=== PATIENT | male | born 1990 | race African-American/Black ===

== ENCOUNTER 2020-09-14 17:14 | Emergency (ER) | payer SELFPAY ==
--- OUTSIDE RECORDS SUMMARY | 2020-09-14 17:17 | XMS REPORT | Continuity of Care Document ---
:1990 Author Organization [facility] t Address [address] [place] [address] Care Team Providers Name Role Phone Unavailable Unavailable Unavailable Problems This patient has no known problems. Allergies, Adverse Reactions, Alerts This patient has no known allergies or adverse reactions. Medications This patient has no known medications. Procedures This patient has no known procedures. Results This patient has no known results.
--- NOTE | 2020-09-14 23:40 | ER ---
Nurse's Notes [facility] Name: Kana Chang Age: 29 yrs Sex: Male : 1990 Arrival Date: 09/14/2020 Time: 17:17 Bed Treatment Private MD: Diagnosis: Presentation: 09/14 17:30 Chief complaint: Patient states: Lower back pain x 2 days. Pt stated, " I lifted kg something heavy at work and had sharp in lower back". Coronavirus screen: Client denies travel out of the [place] in the last 14 days. At this time, unable to obtain information related to travel outside the [place] At this time, the client does not indicate any symptoms associated with coronavirus-19. Ebola Screen: Patient negative for fever greater than or equal to 101.5 degrees Fahrenheit, and additional compatible Ebola Virus Disease symptoms Patient denies exposure to infectious person. Patient denies travel to an Ebola-affected area in the 21 days before illness onset. No symptoms or risks identified at this time. Initial Sepsis Screen: Does the patient meet any 2 criteria? No. Patient's initial sepsis screen is negative. Does the patient have a suspected source of infection? No. Patient's initial sepsis screen is negative. Risk Assessment: Do you want to hurt yourself or someone else? Patient reports no desire to harm self or others. Onset of symptoms was September 12, 2020. 17:30 Method Of Arrival: Ambulatory kg 17:30 Acuity: JOHN 4 kg Triage Assessment: 17:33 General: Appears in no apparent distress. Behavior is calm, cooperative, appropriate kg for age, quiet. Pain: Complains of pain in low back area and left low back. Musculoskeletal:. Historical: - Allergies: 17:33 Iodine; kg - Home Meds: 17:33 None [Active]; kg - PMHx: 17:33 None; kg - PSHx: 17:33 Appendectomy; Right ankle sx; Right foot sx; kg - Immunization history:: Adult Immunizations not immunized, Client reports having NOT received the Covid vaccine. - Social history:: Smoking status: Patient uses Dips tobacco . Screenin:37 Abuse screen: Denies threats or abuse. Denies injuries from another. Nutritional kg screening: No deficits noted. Tuberculosis screening: No symptoms or risk factors identified. Fall Risk None identified. Vital Signs: 17:30 Pulse 84; Resp 20; Temp 97.2(TE); Pulse Ox 100% on R/A; Weight 90.72 kg (R); Height 5 kg ft. 9 in. (175.26 cm) (R); Pain 4/10; 17:30 Body Mass Index 29.53 (90.72 kg, 175.26 cm) kg ED Course: 17:17 Patient arrived in ED. as 17:33 Triage completed. kg 17:33 Arm band placed on left wrist. kg 17:37 Patient has correct armband on for positive identification. kg Administered Medications: No medications were administered Outcome: 23:40 Patient left the ED. kg Signatures: Gabriela Gutierrez Kristen, RN RN kg Corrections: (The following items were deleted from the chart) 17:36 17:33 Allergies: No Known Allergies; kg kg 17:36 17:33 PSHx: None; kg kg
[2020-09-14 23:51] VITALS: TEMP 97.2; O2SAT 100
== END 2020-09-14 23:40 | disposition left against medical advice (07) ==
LOC: ER 17:14
DX: Z53.21 Procedure and treatment not carried out due to patient leaving prior to being seen by health care provider (principal)
CPT/HCPCS: 99281

== ENCOUNTER 2020-12-28 16:39 | Emergency (ER) | payer SELFPAY ==
--- OUTSIDE RECORDS SUMMARY | 2020-12-28 16:42 | XMS REPORT | Continuity of Care Document ---
:1990 Author Organization [facility] t Address [address] [place] [address] Care Team Providers Name Role Phone Unavailable Unavailable Unavailable Problems This patient has no known problems. Allergies, Adverse Reactions, Alerts This patient has no known allergies or adverse reactions. Medications This patient has no known medications. Procedures This patient has no known procedures. Results This patient has no known results.
--- NOTE | 2020-12-28 17:06 | EDPHYS ---
Physician Documentation [facility] Name: Kana Chang Age: 30 yrs Sex: Male : 1990 Arrival Date: 12/28/2020 Time: 16:43 Bed 12 Private MD: ED Physician Jerry Chase HPI: 12/28 17:00 This 30 yrs old Black Male presents to ER via Ambulatory with complaints of Finger jmm Injury. 17:00 The patient or guardian reports injury, a laceration, pain. Onset: The symptoms/episode jmm began/occurred acutely, just prior to arrival. Modifying factors: The symptoms are alleviated by nothing, the symptoms are aggravated by nothing. Associated signs and symptoms: Pertinent negatives: decreased sensation distally, fever, nausea, numbness distally, tingling distally, vomiting. This is a 30-year-old male with no known chronic medical conditions the presents emerged department with complaints of left third finger laceration on the ulnar side. Patient states this occurred when he was washing dishes last night. Patient states that it bled for approximately 15 minutes. Patient states that his last tetanus immunization was most likely in 2011. Patient denies other injury. Historical: - Allergies: 16:54 Iodine; vg1 - Home Meds: 16:54 None [Active]; vg1 - PMHx: 16:54 None; vg1 - PSHx: 16:54 Appendectomy; right ankle sx; Right foot sx; vg1 - Immunization history:: Client reports having NOT received the Covid vaccine. Last tetanus immunization: < 10 years ago. - Social history:: Smoking status: Reported history of juuling and/or vaping. ROS: 17:00 Constitutional: Negative for fever, chills, and weight loss, Cardiovascular: Negative jmm for chest pain, palpitations, and edema, Respiratory: Negative for shortness of breath, cough, wheezing, and pleuritic chest pain. 17:00 MS/extremity: Positive for injury or acute deformity. 17:00 All other systems are negative. Exam: 17:00 Constitutional: This is a well developed, well nourished patient who is awake, alert, jmm and in no acute distress. Head/Face: atraumatic. Eyes: EOMI, no conjunctival erythema appreciated ENT: Moist Mucus Membranes Neck: Trachea midline, Supple Chest/axilla: Normal chest wall appearance and motion. Cardiovascular: Regular rate and rhythm. No edema appreciated Respiratory: Normal respirations, no respiratory distress appreciated Abdomen/GI: Non distended, soft Back: Normal ROM 17:00 Musculoskeletal/extremity: Full range of motion appreciated to the left third IP and DIP, less than 2-second distal capillary refill, neurovascular intact. 17:00 Skin: 1.5 cm laceration noted to the left third mid phalanx, no active bleeding appreciated, no surrounding induration or erythema appreciated. 17:00 Neuro: Orientation: is normal, Mentation: is normal, Memory: is normal. Vital Signs: 16:49 BP 146 / 96; Pulse 73; Resp 16; Temp 98.8; Pulse Ox 99% ; Weight 86.18 kg; Height 5 ft. vg1 9 in. (175.26 cm); Pain 2/10; 16:49 Body Mass Index 28.06 (86.18 kg, 175.26 cm) vg1 MDM: 17:00 Patient medically screened. [facility] 17:00 Data reviewed: vital signs, nurses notes. Counseling: I had a detailed discussion with maria eugenia the patient and/or guardian regarding: the historical points, exam findings, and any diagnostic results supporting the discharge/admit diagnosis, the need for outpatient follow up, to return to the emergency department if symptoms worsen or persist or if there are any questions or concerns that arise at home. 17:00 Refusal of service: The patient/guardian displays adequate decision making capability maria eugenia and despite a detailed discussion of alternatives, benefits, risks, and consequences refuses: Tetanus immunization. 12/28 17:00 Order name: Wound Care; Complete Time: 17:08 [facility] Administered Medications: No medications were administered Disposition: 17:25 Co-signature as Attending Physician, Jerry Chase MD. rn Disposition Summary: 12/28/20 17:05 Discharge Ordered Location: Home [facility] Condition: Stable [facility] Diagnosis - Finger Laceration [facility] Followup: [facility] - With: Private Physician - When: 2 - 3 days - Reason: Recheck today's complaints, Continuance of care, Re-evaluation by your physician Discharge Instructions: - Discharge Summary Sheet [facility] - Nonsutured Laceration Care [facility] Forms: - Medication Reconciliation Form [facility] - Thank You Letter [facility] - Antibiotic Education [facility] - Prescription Opioid Use [facility] - Work release form ss Signatures: Zak May PA PA jmm Nieto, Roman, MD MD rn Sravan, LUCÍA Spann RN vg1
--- NOTE | 2020-12-28 17:06 | ER ---
Nurse's Notes [facility] Name: Kana Chang Age: 30 yrs Sex: Male : 1990 Arrival Date: 12/28/2020 Time: 16:43 Bed 12 Private MD: Diagnosis: Finger Laceration Presentation: 12/28 16:49 Chief complaint: Patient states: Accidently cut Left middle finger with a plate at work vg1 and plate was about 190 degrees. States wants to get it checked and make sure its not infected. Coronavirus screen: Vaccine status: Patient reports being unvaccinated. Client denies travel out of the [place] in the last 14 days. Ebola Screen: Patient negative for fever greater than or equal to 101.5 degrees Fahrenheit, and additional compatible Ebola Virus Disease symptoms. Initial Sepsis Screen: Does the patient meet any 2 criteria? No. Patient's initial sepsis screen is negative. Does the patient have a suspected source of infection? No. Patient's initial sepsis screen is negative. Risk Assessment: Do you want to hurt yourself or someone else? Patient reports no desire to harm self or others. Onset of symptoms was December 27, 2020. 16:49 Method Of Arrival: Ambulatory vg1 16:49 Acuity: JOHN 4 vg1 Triage Assessment: 16:54 General: Appears in no apparent distress. comfortable, Behavior is calm, cooperative. vg1 Pain: Complains of pain in palmar aspect of middle phalanx of left middle finger Pain currently is 2 out of 10 on a pain scale. Musculoskeletal: Circulation, motion, and sensation intact. Injury Description: Laceration sustained to palmar aspect of middle phalanx of left middle finger was sustained 1 day ago. Historical: - Allergies: 16:54 Iodine; vg1 - Home Meds: 16:54 None [Active]; vg1 - PMHx: 16:54 None; vg1 - PSHx: 16:54 Appendectomy; right ankle sx; Right foot sx; vg1 - Immunization history:: Client reports having NOT received the Covid vaccine. Last tetanus immunization: < 10 years ago. - Social history:: Smoking status: Reported history of juuling and/or vaping. Screenin:14 Abuse screen: Denies threats or abuse. Denies injuries from another. Nutritional ss screening: No deficits noted. Tuberculosis screening: Never had TB. Fall Risk None identified. Assessment: 17:14 General: Appears in no apparent distress. comfortable, Behavior is calm, cooperative. ss Respiratory: Respiratory effort is even, unlabored. 17:14 Derm: Skin is pink, warm \T\ dry. normal. Musculoskeletal: Range of motion: intact in all ss extremities. Vital Signs: 16:49 BP 146 / 96; Pulse 73; Resp 16; Temp 98.8; Pulse Ox 99% ; Weight 86.18 kg; Height 5 ft. vg1 9 in. (175.26 cm); Pain 2/10; 16:49 Body Mass Index 28.06 (86.18 kg, 175.26 cm) vg1 ED Course: 16:43 Patient arrived in ED. mr 16:54 Triage completed. vg1 16:54 Arm band placed on. vg1 16:59 Zak May PA is PHCP. [facility] 16:59 Jerry Chase MD is Attending Physician. [facility] 17:08 Helen Goyal, LUCÍA is Primary Nurse. ss 17:13 No provider procedures requiring assistance completed. Patient did not have IV access ss during this emergency room visit. Dressings: Band aid x 1 palmar aspect of middle phalanx of left middle finger. Wound care: to laceration located on palmar aspect of middle phalanx of left middle finger was cleaned with soap and water, Patient tolerated well. 17:14 Patient has correct armband on for positive identification. Bed in low position. ss Administered Medications: No medications were administered Outcome: 17:05 Discharge ordered by . [facility] 17:13 Discharged to home ambulatory. ss 17:13 Condition: good 17:13 Discharge instructions given to patient, Instructed on discharge instructions, follow up and referral plans. Demonstrated understanding of instructions, follow-up care. 17:15 Patient left the ED. ss Signatures: Zak May PA PA jmm Ang Megan mr Helen Goyal, LUCÍA RN Maria Ines Bustos RN RN vg1
[2020-12-28 17:20] VITALS: BP 146/96; TEMP 98.8; O2SAT 99
== END 2020-12-28 17:15 | disposition home or self-care (01) ==
LOC: ER 16:39
DX: S61.213A Laceration without foreign body of left middle finger without damage to nail, initial encounter (principal); Z91.048 Other nonmedicinal substance allergy status
CPT/HCPCS: 99283

== ENCOUNTER 2021-02-20 20:02 | Emergency (ER) | payer SELFPAY ==
--- OUTSIDE RECORDS SUMMARY | 2021-02-20 20:05 | XMS REPORT | Continuity of Care Document ---
:1990 Author Organization [facility] t Address [address] [place] [address] [address] [place] [address] Care Team Providers Name Role Phone Unavailable Unavailable Unavailable Problems This patient has no known problems. Allergies, Adverse Reactions, Alerts This patient has no known allergies or adverse reactions. Medications This patient has no known medications. Procedures This patient has no known procedures. Results This patient has no known results.
[2021-02-20 21:09] LABS: Absolute Lymphocytes (CBC) 0.9 K/uL (0.7-4.9); Hematocrit 44.5 % (39.6-49.0); MPV 7.6 fL (7.6-11.3); RBC Red Blood Cell Count 5.11 M/uL (4.33-5.43)
[2021-02-20 21:25] LABS: ALT/SGPT 32 U/L (12-78); AST/SGOT 16 U/L (15-37); Albumin 3.7 g/dL (3.4-5.0); Alkaline Phosphatase 56 U/L (45-117); BUN Blood Urea Nitrogen 11 mg/dL (7-18); Bicarbonate 28 mmol/L (21-32); Bilirubin Direct < 0.1 mg/dL (0-0.2); Bilirubin Total 0.3 mg/dL (0.2-1.0); Glucose Level 115 mg/dL (74-106); Lipase 68 U/L (73-393); Potassium 3.5 mmol/L (3.5-5.1); Protein, Total 7.4 g/dL (6.4-8.2); Sodium Level 139 mmol/L (136-145)
[2021-02-20] MEDS ORDERED: ONDANSETRON 4 MG/2 ML VIAL ONE (22:25)
[2021-02-20] MEDS ORDERED: NA CHLORIDE 0.9% 1,000 ML ONE (22:25)
[2021-02-20] MEDS ORDERED: MORPHINE 4 MG/ML SYR ONE (22:25)
[2021-02-20] MEDS ORDERED: FAMOTIDINE 20 MG/2 ML VIAL IV ONE (22:41)
[2021-02-20 23:40] LABS: SARS-COV-2 RT PCR NEGATIVE (NEGATIVE)
[2021-02-21] MEDS ORDERED: NA CHLORIDE 0.9% 1,000 ML ONE (00:41)
--- NOTE | 2021-02-21 00:54 | ER ---
Nurse's Notes [facility] Name: Kana Chang Age: 30 yrs Sex: Male : 1990 Arrival Date: 02/20/2021 Time: 20:05 Bed Treatment Private MD: Diagnosis: Nausea with vomiting, unspecified;Diarrhea, unspecified Presentation: 02/20 20:38 Chief complaint: Patient states: unable to hold food down since last night; thrown up ld1 approx 4 times. Feeling lightheaded, diarrhea all day. Coronavirus screen: Vaccine status: Patient reports being unvaccinated. Client denies travel out of the [place] in the last 14 days. Ebola Screen: Patient negative for fever greater than or equal to 101.5 degrees Fahrenheit, and additional compatible Ebola Virus Disease symptoms Patient denies exposure to infectious person. Patient denies travel to an Ebola-affected area in the 21 days before illness onset. Initial Sepsis Screen: Does the patient meet any 2 criteria? No. Patient's initial sepsis screen is negative. Does the patient have a suspected source of infection? No. Patient's initial sepsis screen is negative. Risk Assessment: Do you want to hurt yourself or someone else? Patient reports no desire to harm self or others. Onset of symptoms. 20:38 Method Of Arrival: Ambulatory ld1 20:38 Acuity: JOHN 3 ld1 Triage Assessment: 20:42 General: Appears uncomfortable, well groomed, well nourished, Behavior is calm, ld1 cooperative, appropriate for age. Pain: Complains of pain in abdomen. GI: Reports lower abdominal pain, upper abdominal pain, diarrhea, nausea, vomiting. Historical: - Allergies: 20:42 Iodine; ld1 - PSHx: 20:42 Appendectomy; right ankle sx; Right foot sx; ld1 - Immunization history:: Adult Immunizations up to date. - Social history:: Smoking status: Patient denies any tobacco usage or history of. Screenin/14 02:07 Abuse screen: Denies threats or abuse. Nutritional screening: No deficits noted. sf1 Tuberculosis screening: No symptoms or risk factors identified. Fall Risk None identified. Assessment: 02:08 GI: Abdomen is non-distended, Reports diarrhea, nausea, vomiting. sf1 Vital Signs: 02/20 20:38 BP 158 / 92; Pulse 85; Resp 18; Temp 100.3; Pulse Ox 100% ; Weight 88.45 kg; Height 5 ld1 ft. 10 in. (177.80 cm); 02/21 00:02 BP 132 / 81; Pulse 72; Resp 20; sf1 02/20 20:38 Body Mass Index 27.98 (88.45 kg, 177.80 cm) ld1 ED Course: 02/20 20:05 Patient arrived in ED. ja2 20:41 Triage completed. ld1 20:42 Arm band placed on right wrist. ld1 20:46 Inserted saline lock: 20 gauge in right antecubital area, using aseptic technique. ld1 21:30 Eben Canseco PA is PHCP. cp 21:30 Eben Arriaga MD is Attending Physician. cp 21:37 Krista Alberto RN is Primary Nurse. sf1 22:26 CT Abd/Pelvis - Without Contrast In Process Unspecified. EDMS 02/21 02:07 Patient has correct armband on for positive identification. Bed in low position. Call sf1 light in reach. 02:07 No provider procedures requiring assistance completed. IV discontinued, intact, sf1 bleeding controlled, No redness/swelling at site. Pressure dressing applied. Administered Medications: 02/20 22:36 Drug: Zofran (Ondansetron) 4 mg Route: IVP; Site: right antecubital; sf1 22:37 Drug: NS 0.9% 1000 ml Route: IV; Rate: 1 bolus; Site: right antecubital; sf1 22:37 Drug: morphine 4 mg Route: IVP; Site: right antecubital; sf1 22:44 Drug: Pepcid (famotidine) 20 mg Route: IVP; Site: right antecubital; ld1 02/21 00:45 Drug: NS 0.9% 1000 ml Route: IV; Rate: 1 bolus; Site: right antecubital; sf1 Outcome: 00:53 Discharge ordered by . cp 02:07 Discharged to home ambulatory. sf1 02:07 Condition: good 02:07 Discharge instructions given to patient, Instructed on discharge instructions, follow up and referral plans. Demonstrated understanding of instructions, follow-up care, medications, Prescriptions given X 2. 02:08 Patient left the ED. sf1 Signatures: Dispatcher [employer] EDNE Eben Canseco PA PA cp Dibbern, Pattie, RN RN ld1 Yessy Torres Samantha, RN RN sf1
--- NOTE | 2021-02-21 00:54 | EDPHYS ---
Physician Documentation [facility] Name: Kana Chang Age: 30 yrs Sex: Male : 1990 Arrival Date: 02/20/2021 Time: 20:05 Bed Treatment Private MD: ED Physician Eben Arriaga HPI: 02/20 22:00 This 30 yrs old Black Male presents to ER via Ambulatory with complaints of cp Nausea/Vomiting/Diarrhea, Dizziness. 22:00 The patient presents to the emergency department with nausea, that is moderate, cp vomiting, that is continuous, diarrhea, that is continuous, abdominal pain, of the abdomen diffusely. 22:00 Onset: The symptoms/episode began/occurred last night. Possible causes: bad food cp exposure, ate pizza from [employer]. Associated signs and symptoms: Pertinent positives: abdominal pain, anorexia, Pertinent negatives: constipation, GI bleeding. Severity of symptoms: in the emergency department the symptoms are unchanged despite home interventions. Historical: - Allergies: 20:42 Iodine; ld1 - PSHx: 20:42 Appendectomy; right ankle sx; Right foot sx; ld1 - Immunization history:: Adult Immunizations up to date. - Social history:: Smoking status: Patient denies any tobacco usage or history of. ROS: 22:05 Constitutional: Positive for poor PO intake, Negative for fever. cp 22:05 Eyes: Negative for injury, pain, redness, and discharge. cp 22:05 ENT: Negative for ear pain, sore throat, difficulty swallowing, difficulty handling secretions. 22:05 Cardiovascular: Negative for chest pain. 22:05 Respiratory: Negative for cough, shortness of breath, wheezing. 22:05 Abdomen/GI: Positive for abdominal pain, nausea, vomiting, and diarrhea, Negative for constipation, hematemesis, black/tarry stool, rectal bleeding. 22:05 Back: Negative for radiated pain. 22:05 Skin: Negative for rash. 22:05 Neuro: Negative for altered mental status, headache, syncope, weakness. 22:05 All other systems are negative. Exam: 22:10 Constitutional: The patient appears in no acute distress, alert, awake, cp non-diaphoretic, non-toxic, well developed, well nourished, uncomfortable. 22:10 Head/Face: Normocephalic, atraumatic. cp 22:10 Eyes: Periorbital structures: appear normal, Conjunctiva: normal, no exudate, no injection, Sclera: no appreciated abnormality, Lids and lashes: appear normal, bilaterally. 22:10 ENT: External ear(s): are unremarkable, Nose: is normal, Mouth: Lips: dry, Oral mucosa: moist, Posterior pharynx: Airway: no evidence of obstruction, patent. 22:10 Neck: ROM/movement: is normal, is supple, without pain, no range of motions limitations. 22:10 Chest/axilla: Inspection: normal, Palpation: is normal, no crepitus, no tenderness. 22:10 Cardiovascular: Rate: normal, Rhythm: regular. 22:10 Respiratory: the patient does not display signs of respiratory distress, Respirations: normal, no use of accessory muscles, no retractions, labored breathing, is not present, Breath sounds: are clear throughout, no decreased breath sounds, no stridor, no wheezing. 22:10 Abdomen/GI: Inspection: abdomen appears normal, Bowel sounds: active, all quadrants, Palpation: soft, in all quadrants, mild abdominal tenderness, in all quadrants. 22:10 Back: pain, is absent, ROM is normal. 22:10 Neuro: Orientation: to person, place \\T\\ time. Mentation: is normal, Motor: moves all fours, strength is normal, Sensation: is normal. Vital Signs: 20:38 BP 158 / 92; Pulse 85; Resp 18; Temp 100.3; Pulse Ox 100% ; Weight 88.45 kg; Height 5 ld1 ft. 10 in. (177.80 cm); 02/21 00:02 BP 132 / 81; Pulse 72; Resp 20; sf1 02/20 20:38 Body Mass Index 27.98 (88.45 kg, 177.80 cm) ld1 MDM: 02/20 21:40 Patient medically screened. [facility] 22:00 Differential diagnosis: gastritis, pancreatitis, appendicitis, viral gastroenteritis, cp gastroenteritis, dehydration, electrolyte abnormality. 02/21 00:52 Data reviewed: vital signs, nurses notes, lab test result(s), radiologic studies, CT cp scan. 00:52 Counseling: I had a detailed discussion with the patient and/or guardian regarding: the cp historical points, exam findings, and any diagnostic results supporting the discharge/admit diagnosis, lab results, radiology results, to return to the emergency department if symptoms worsen or persist or if there are any questions or concerns that arise at home. Response to treatment: the patient's symptoms have mildly improved after treatment, and as a result, I will discharge patient. 02/20 20:44 Order name: CBC with Diff; Complete Time: 22:08 [facility] 02/20 23:42 Interpretation: Normal except: BIB% 74.2. cp 02/20 20:44 Order name: Hepatic Function; Complete Time: 22:08 [facility] 02/20 23:42 Interpretation: Normal except: GLOB 3.7; A/G 1.0. cp 02/20 20:44 Order name: Lipase; Complete Time: 22:08 [facility] 02/21 00:25 Interpretation: LIP 68; Reviewed. 02/20 20:45 Order name: Basic Metabolic Panel; Complete Time: 22:08 [facility] 02/20 23:42 Interpretation: Normal except: GLUC 115. 02/20 20:44 Order name: IV Saline Lock; Complete Time: 20:47 [facility] 02/20 22:10 Order name: COVID-19/FLU A+B (Document "Date of Onset" if Symptomatic); Complete Time: cp 23:42 02/20 23:42 Interpretation: Reviewed. 02/20 22:10 Order name: CT Abd/Pelvis - Without Contrast 02/20 20:44 Order name: Labs collected and sent; Complete Time: 20:47 1 02/21 00:25 Order name: PO challenge; Complete Time: 00:45 cp Administered Medications: 02/20 22:36 Drug: Zofran (Ondansetron) 4 mg Route: IVP; Site: right antecubital; sf1 22:37 Drug: NS 0.9% 1000 ml Route: IV; Rate: 1 bolus; Site: right antecubital; sf1 22:37 Drug: morphine 4 mg Route: IVP; Site: right antecubital; sf1 22:44 Drug: Pepcid (famotidine) 20 mg Route: IVP; Site: right antecubital; ld1 02/21 00:45 Drug: NS 0.9% 1000 ml Route: IV; Rate: 1 bolus; Site: right antecubital; sf1 Disposition: 08:15 Co-signature as Attending Physician, Eben Arriaga MD I agree with the assessment and lázaro plan of care. Disposition Summary: 02/21/21 00:53 Discharge Ordered Location: Home cp Problem: new cp Symptoms: have improved cp Condition: Stable cp Diagnosis - Nausea with vomiting, unspecified cp - Diarrhea, unspecified cp Followup: cp - With: Private Physician - When: 2 - 3 days - Reason: Recheck today's complaints Discharge Instructions: - Discharge Summary Sheet cp - Food Choices to Help Relieve Diarrhea, Adult cp - Diarrhea, Adult cp - Nausea and Vomiting, Adult cp Forms: - Medication Reconciliation Form cp - Thank You Letter cp - Antibiotic Education cp - Prescription Opioid Use cp - Work release form eb Prescriptions: - Zofran 4 mg Oral Tablet - take 1 tablet by ORAL route every 12 hours As needed; 20 tablet; Refills: 0, cp Product Selection Permitted - dicyclomine 20 mg Oral Tablet - take 1 tablet by ORAL route 4 times per day; 30 tablet; Refills: 0, Product cp Selection Permitted Signatures: Dispatcher [employer] Eben Nesbitt MD MD cha Page, Corey, PA PA cp Pattie Pena, RN RN ld1 Krista Alberto RN RN sf1 Corrections: (The following items were deleted from the chart) 02/20 23:41 20:45 BASIC METABOLIC PANEL+[id number].LAB.BRZ ordered. [facility] [place]
[2021-02-21 02:13] VITALS: TEMP 100.3; O2SAT 100
[2021-02-21 02:14] VITALS: BP 132/81
--- NOTE | 2021-02-21 09:57 | RAD REPORT ---
EXAM DESCRIPTION: CT - Abdomen Pelvis Wo Contrast - 02/21/2021 6:23 am CLINICAL HISTORY: 30 years Male ABD PAIN COMPARISON: None TECHNIQUE: Images were obtained in axial, sagittal, and coronal planes. No intravenous or oral contr ast was administered. This exam was performed according to our departmental dose-optimization program which includes use of Automated Exposure Control, adjustment of the mA and/or kV according to patient size and/or use of iterative reconstruction technique. FINDINGS: Prominent left lobe of liver. Unremarkable spleen, pancreas, gallbladder, or adrenal gland s bilaterally. Retained food debris within the stomach. No obstructing renal or ureteral calculi bilaterally. No hydronephrosis bilaterally. Unremarkable mariah dder. Surgical clips adjacent to cecum likely related to prior appendectomy. No bowel obstruction, perforat ion, or inflammation. No abnormality of abdominal aorta. No adenopathy or abnormal fluid collections seen. No acute osseous abnormality. No abnormality lower lungs bilaterally. IMPRESSION: No acute intra-abdominal abnormality. Electronically signed by: Nahomi Lopez MD 02/20/2021 10:43 PM [employer]ACQUARD [employer]ER Due to temporary technical issues with the PACS/Fluency reporting system, reports are being signed by the in house radiologists without review as a courtesy to insure prompt reporting. The interpreting radiologist is fully responsible for the content of the report.
== END 2021-02-21 02:08 | disposition home or self-care (01) ==
LOC: ER 20:02
DX: R19.7 Diarrhea, unspecified (principal); Z20.822 Contact with and (suspected) exposure to COVID-19
CPT/HCPCS: 0240U; 36415; 74176; 80048; 80076; 83690; 85025; 96374; 96375; 99284; J2405; J7030

== ENCOUNTER 2021-08-25 14:29 | Emergency (ER) | payer SELFPAY ==
[2021-08-25] MEDS ORDERED: ONDANSETRON 4 MG (ODT) TAB ONE (15:41)
[2021-08-25] MEDS ORDERED: IBUPROFEN 400 MG TAB ONE (15:41)
--- NOTE | 2021-08-25 17:41 | ER ---
Nurse's Notes [facility] Name: Kana Chang Age: 30 yrs Sex: Male : 1990 Arrival Date: 08/25/2021 Time: 14:30 Bed Waiting [facility] MD: Diagnosis: Coronavirus infection, unspecified Presentation: 08/25 15:28 Chief complaint: Patient states: headache x 2 days with NV and cough. Coronavirus vg1 screen: Vaccine status: Patient reports being unvaccinated. Client denies travel out of the [place] in the last 14 days. Coronavirus screen: Client denies travel out of the [place] in the last 14 days. Ebola Screen: Patient denies exposure to infectious person. Patient denies travel to an Ebola-affected area in the 21 days before illness onset. Initial Sepsis Screen: Does the patient meet any 2 criteria? No. Patient's initial sepsis screen is negative. Does the patient have a suspected source of infection? No. Patient's initial sepsis screen is negative. Risk Assessment: Do you want to hurt yourself or someone else? Patient reports no desire to harm self or others. Onset of symptoms was August 23, 2021. 15:28 Method Of Arrival: Ambulatory vg1 15:28 Acuity: JOHN 4 vg1 Triage Assessment: 15:32 General: Appears uncomfortable, Behavior is calm, cooperative. Pain: Complains of pain vg1 in head Pain currently is 7 out of 10 on a pain scale. Pain began 2-3 days ago. GI: Reports nausea. Historical: - Allergies: 15:32 Iodine; vg1 - Home Meds: 15:32 None [Active]; vg1 - PMHx: 15:32 None; vg1 - PSHx: 15:32 Appendectomy; right ankle sx; Right foot sx; vg1 - Immunization history:: Client reports having NOT received the Covid vaccine. - Social history:: Smoking status: Patient denies any tobacco usage or history of. Screenin:55 Abuse screen: Denies threats or abuse. Nutritional screening: No deficits noted. vg1 Tuberculosis screening: No symptoms or risk factors identified. Fall Risk None identified. Assessment: 17:55 Reassessment: Patient appears in no apparent distress at this time. Patient and/or vg1 family updated on plan of care and expected duration. Pain level reassessed. Patient is alert, oriented x 3, equal unlabored respirations, skin warm/dry/pink. 17:56 GI: Abdomen is flat. vg1 Vital Signs: 15:28 BP 140 / 84; Pulse 83; Resp 20; Temp 98.8; Pulse Ox 100% on R/A; Weight 94.8 kg; Pain vg1 7/10; ED Course: 14:30 Patient arrived in ED. as 15:01 Jordana Phillip FNP-C is [facility]. kb 15:01 Sami Serna DO is Attending Physician. kb 15:32 Triage completed. vg1 15:32 Arm band placed on. vg1 15:33 COVID swab sent to lab. Flu and/or RSV swab sent to lab. vg1 17:55 Patient has correct armband on for positive identification. vg1 17:55 No provider procedures requiring assistance completed. Patient did not have IV access vg1 during this emergency room visit. Administered Medications: 15:36 Drug: Zofran (Ondansetron) 4 mg Route: PO; vg1 17:55 Follow up: Response: Marked relief of symptoms vg1 15:36 Drug: Ibuprofen 800 mg Route: PO; vg1 17:55 Follow up: Response: Marked relief of symptoms vg1 Medication: 17:56 VIS not applicable for this client. vg1 Outcome: 17:41 Discharge ordered by . kb 17:55 Discharged to home ambulatory, with family. vg1 17:55 Condition: good 17:55 Discharge instructions given to patient, Instructed on discharge instructions, follow up and referral plans. Demonstrated understanding of instructions, follow-up care. 17:56 Patient left the ED. vg1 Signatures: Jordana Phillip FNP-C FNP-Gabrilea Sarkar Victoria, RN RN vg1
--- NOTE | 2021-08-25 17:41 | EDPHYS ---
Physician Documentation [facility] Name: Kana Chang Age: 30 yrs Sex: Male : 1990 Arrival Date: 08/25/2021 Time: 14:30 Bed Waiting Private MD: ED Physician Sami Serna HPI: 08/25 15:32 This 30 yrs old Black Male presents to ER via Ambulatory with complaints of r/o covid, kb Vomiting, Headache. 15:29 Pt reports headache, fever, chills, bodyaches, vomiting and malaise for 2 days. . kb 15:32 The patient or guardian reports cough, that is intermittent, described as mild, flu kb symptoms, low-grade fever, myalgias. Onset: The symptoms/episode began/occurred 2 day(s) ago. Severity of symptoms: At their worst the symptoms were moderate, in the emergency department the symptoms are unchanged. Modifying factors: The symptoms are alleviated by nothing, the symptoms are aggravated by nothing. Associated signs and symptoms: Pertinent positives: diarrhea, fever, nausea, vomiting. The patient has not experienced similar symptoms in the past. The patient has not recently seen a physician. Historical: - Allergies: 15:32 Iodine; vg1 - Home Meds: 15:32 None [Active]; vg1 - PMHx: 15:32 None; vg1 - PSHx: 15:32 Appendectomy; right ankle sx; Right foot sx; vg1 - Immunization history:: Client reports having NOT received the Covid vaccine. - Social history:: Smoking status: Patient denies any tobacco usage or history of. ROS: 15:31 ENT: Negative for injury, pain, and discharge. kb 15:31 Constitutional: Positive for body aches, chills, fatigue, fever, malaise. 15:31 Respiratory: Positive for cough, Negative for dyspnea on exertion, hemoptysis, orthopnea, pleurisy, shortness of breath, sputum production, wheezing. 15:31 Abdomen/GI: Positive for nausea, vomiting, and diarrhea, Negative for abdominal pain. 15:31 Neuro: Positive for headache. 15:31 All other systems are negative. Exam: 15:31 Constitutional: This is a well developed, well nourished patient who is awake, alert, kb and in no acute distress. Head/Face: Normocephalic, atraumatic. ENT: Moist Mucous membranes Cardiovascular: Regular rate and rhythm with a normal S1 and S2. No gallops, murmurs, or rubs. No pulse deficits. Respiratory: Respirations even and unlabored. No increased work of breathing. Talking in full sentences Abdomen/GI: Soft, non-tender. No distention Skin: Warm, dry with normal turgor. Normal color. MS/ Extremity: Pulses equal, no cyanosis. Neurovascular intact. Full, normal range of motion. Neuro: Awake and alert, GCS 15, oriented to person, place, time, and situation. Moves all extremities. Normal gait. Psych: Awake, alert, with orientation to person, place and time. Behavior, mood, and affect are within normal limits. Vital Signs: 15:28 BP 140 / 84; Pulse 83; Resp 20; Temp 98.8; Pulse Ox 100% on R/A; Weight 94.8 kg; Pain vg1 7/10; MDM: 15:31 Data reviewed: vital signs, nurses notes. Data interpreted: Pulse oximetry: on room air kb is 98 %. Interpretation: normal. 15:37 Patient medically screened. kb 17:40 Counseling: I had a detailed discussion with the patient and/or guardian regarding: the kb historical points, exam findings, and any diagnostic results supporting the discharge/admit diagnosis, lab results, the need for outpatient follow up, a family practitioner, to return to the emergency department if symptoms worsen or persist or if there are any questions or concerns that arise at home. 08/25 15:31 Order name: COVID-19 SARS RT PCR (Document "Date of Onset" if Symptomatic); Complete kb Time: 17:40 08/25 15:31 Order name: Flu; Complete Time: 16:07 kb Administered Medications: 15:36 Drug: Zofran (Ondansetron) 4 mg Route: PO; vg1 17:55 Follow up: Response: Marked relief of symptoms vg1 15:36 Drug: Ibuprofen 800 mg Route: PO; vg1 17:55 Follow up: Response: Marked relief of symptoms vg1 Disposition: 22:10 Co-signature as Attending Physician, Sami Serna DO I was immediately available on-site ms3 in the Emergency Department for consultation in the care of the patient. . Disposition Summary: 08/25/21 17:41 Discharge Ordered Location: Home kb Condition: Stable kb Diagnosis - Coronavirus infection, unspecified kb Followup: kb - With: Private Physician - When: 2 - 3 days - Reason: Recheck today's complaints, Continuance of care, Re-evaluation by your physician Followup: kb - With: Emergency Department - When: As needed - Reason: Worsening of condition Discharge Instructions: - Discharge Summary Sheet kb - Viral Respiratory Infection, [id number] kb - COVID-19 kb Forms: - Medication Reconciliation Form kb - Thank You Letter kb - Antibiotic Education kb - Prescription Opioid Use kb Signatures: Dispatcher [employer] EDMS Jordana Phillip, CASE MAKING MACHINE OPERATOR-C MARIO ALBERTO-Maria Ines Penn, RN RN vg1 Sami Serna DO DO ms3
[2021-08-25 18:19] VITALS: BP 140/84; TEMP 98.8; O2SAT 100
== END 2021-08-25 17:56 | disposition home or self-care (01) ==
LOC: ER 14:29
DX: U07.1 COVID-19 (principal); Z91.048 Other nonmedicinal substance allergy status
CPT/HCPCS: 87804; 99283; Q0162; U0003

== ENCOUNTER 2022-07-13 22:28 | Emergency (ER) | payer SELFPAY ==
--- NOTE | 2022-07-13 22:39 | ER ---
Nurse's Notes [facility] Name: Kana Chang Age: 31 yrs Sex: Male : 1990 Arrival Date: 07/13/2022 Time: 22:28 Bed Waiting [facility] MD: Diagnosis: Acute tonsillitis, unspecified Presentation: 07/13 22:36 Chief complaint: Patient states: I feel like my throat is closing, it hurts so bad. It vc1 hurts to swallow. Coronavirus screen: Vaccine status: Patient reports being unvaccinated. Client denies travel out of the [place] in the last 14 days. At this time, the client does not indicate any symptoms associated with coronavirus-19. Ebola Screen: Patient negative for fever greater than or equal to 101.5 degrees Fahrenheit, and additional compatible Ebola Virus Disease symptoms Patient denies exposure to infectious person. Patient denies travel to an Ebola-affected area in the 21 days before illness onset. No symptoms or risks identified at this time. Initial Sepsis Screen: Does the patient meet any 2 criteria? No. Patient's initial sepsis screen is negative. Does the patient have a suspected source of infection? No. Patient's initial sepsis screen is negative. Risk Assessment: Do you want to hurt yourself or someone else? Patient reports no desire to harm self or others. Onset of symptoms was July 12, 2022. 22:36 Method Of Arrival: Ambulatory vc1 22:36 Acuity: JOHN 4 vc1 Triage Assessment: 22:39 General: Appears in no apparent distress. uncomfortable, Behavior is calm, cooperative, vc1 appropriate for age. Pain: Complains of pain in throat Pain does not radiate. Pain currently is 9 out of 10 on a pain scale. EENT: Reports pain when swallowing. Neuro: Level of Consciousness is awake, alert, obeys commands, Oriented to person, place, time. Cardiovascular: No deficits noted. Respiratory: Airway is patent Respiratory effort is even, unlabored, Respiratory pattern is regular, symmetrical. GI: No deficits noted. No signs and/or symptoms were reported involving the gastrointestinal system. : No deficits noted. No signs and/or symptoms were reported regarding the genitourinary system. Derm: No deficits noted. No signs and/or symptoms reported regarding the dermatologic system. Musculoskeletal: No deficits noted. No signs and/or symptoms reported regarding the musculoskeletal system. Historical: - Allergies: 22:38 Iodine; vc1 - Home Meds: 22:38 None [Active]; vc1 - PMHx: 22:38 None; vc1 - PSHx: 22:38 Appendectomy; right ankle sx; Right foot sx; vc1 - Immunization history:: Client reports having NOT received the Covid vaccine. - Social history:: Smoking status: Reported history of juuling and/or vaping. Screenin:48 [facility] ED Fall Risk Assessment (Adult) History of falling in the last 3 months, vc1 including since admission No falls in past 3 months (0 pts) Confusion or Disorientation No (0 pts) Intoxicated or Sedated No (0 pts) Impaired Gait No (0 pts) Mobility Assist Device Used No (0 pt) Altered Elimination No (0 pt) Score/Fall Risk Level 0 - 2 = Low Risk Oriented to surroundings, Maintained a safe environment, Educated pt \T\ family on fall prevention, incl call for assistance when getting out of bed. Abuse screen: Denies threats or abuse. Nutritional screening: No deficits noted. Tuberculosis screening: No symptoms or risk factors identified. Assessment: 22:48 Respiratory: Respiratory effort is even, unlabored, Breath sounds are clear. vc1 Vital Signs: 22:36 BP 153 / 101; Pulse 86; Resp 17; Temp 99.3; Pulse Ox 99% ; Weight 95.25 kg; Height 5 vc1 ft. 10 in. ; Pain 9/10; 22:36 Body Mass Index 30.13 (95.25 kg, 177.8 cm) vc1 22:36 Pain Scale: Adult vc1 ED Course: 22:33 Patient arrived in ED. es 22:34 [facility]C [facility]. kb 22:34 Shamar Martin MD is Attending Physician. kb 22:38 Triage completed. vc1 22:39 Arm band placed on left wrist. vc1 22:48 No provider procedures requiring assistance completed. Patient did not have IV access vc1 during this emergency room visit. Administered Medications: 22:46 Drug: Dexamethasone PO 10 mg Route: PO; vc1 22:47 Follow up: Response: Medication administered at discharge. vc1 22:47 Drug: Amoxicillin-Clavulanate PO 875 mg Route: PO; vc1 22:47 Follow up: Response: Medication administered at discharge. vc1 Medication: 22:49 VIS not applicable for this client. vc1 Outcome: 22:38 Discharge ordered by . gina 22:49 Discharged to home ambulatory. vc1 22:49 Condition: good 22:49 Discharge instructions given to patient, Instructed on discharge instructions, follow up and referral plans. medication usage, Demonstrated understanding of instructions, follow-up care, medications, Prescriptions given X 1. 22:50 Patient left the ED. vc1 Signatures: Jordana Phillip, SENIOR PRODUCT DESIGNER-C SENIOR PRODUCT DESIGNER-Essie Hudson Vanessa, RN RN vc1
--- NOTE | 2022-07-13 22:39 | EDPHYS ---
Physician Documentation [facility] Name: Kana Chang Age: 31 yrs Sex: Male : 1990 Arrival Date: 07/13/2022 Time: 22:28 Bed Waiting Private MD: ED Physician Shamar Martin HPI: 07/13 23:15 This 31 yrs old Black Male presents to ER via Ambulatory with complaints of Sore Throat.kb 23:15 The patient presents with sore throat. The patient describes throat pain as constant. kb Onset: The symptoms/episode began/occurred yesterday. Severity of symptoms: At their worst the symptoms were moderate, in the emergency department the symptoms are unchanged. Modifying factors: The symptoms are alleviated by nothing, the symptoms are aggravated by swallowing. Associated signs and symptoms: Pertinent positives: fever, Sore throat. The patient has experienced similar episodes in the past. The patient has not recently seen a physician. Historical: - Allergies: 22:38 Iodine; vc1 - Home Meds: 22:38 None [Active]; vc1 - PMHx: 22:38 None; vc1 - PSHx: 22:38 Appendectomy; right ankle sx; Right foot sx; vc1 - Immunization history:: Client reports having NOT received the Covid vaccine. - Social history:: Smoking status: Reported history of juuling and/or vaping. ROS: 23:14 Respiratory: Negative for shortness of breath, cough, wheezing, and pleuritic chest kb pain. 23:14 Constitutional: Positive for fever. 23:14 ENT: Positive for sore throat. 23:14 All other systems are negative. Exam: 23:14 Constitutional: This is a well developed, well nourished patient who is awake, alert, kb and in no acute distress. Head/Face: Normocephalic, atraumatic. Cardiovascular: Regular rate and rhythm with a normal S1 and S2. No gallops, murmurs, or rubs. No pulse deficits. Respiratory: Respirations even and unlabored. No increased work of breathing. Talking in full sentences Skin: Warm, dry with normal turgor. Normal color. MS/ Extremity: Pulses equal, no cyanosis. Neurovascular intact. Full, normal range of motion. Neuro: Awake and alert, GCS 15, oriented to person, place, time, and situation. Moves all extremities. Normal gait. 23:14 ENT: Posterior pharynx: Airway: normal, Tonsils: bilaterally enlarged, with erythema, Uvula: normal, midline, swelling, that is moderate, erythema, that is moderate, exudate, is not appreciated. Vital Signs: 22:36 BP 153 / 101; Pulse 86; Resp 17; Temp 99.3; Pulse Ox 99% ; Weight 95.25 kg; Height 5 vc1 ft. 10 in. ; Pain 9/10; 22:36 Body Mass Index 30.13 (95.25 kg, 177.8 cm) vc1 22:36 Pain Scale: Adult vc1 MDM: 22:35 Patient medically screened. kb 23:15 Differential diagnosis: pharyngitis, tonsillitis, strep. Data reviewed: vital signs, kb nurses notes. Test considered but Not performed: Labs: strep test considred, but result would not change treatment plan. Counseling: I had a detailed discussion with the patient and/or guardian regarding: the historical points, exam findings, and any diagnostic results supporting the discharge/admit diagnosis, the need for outpatient follow up, a family practitioner, to return to the emergency department if symptoms worsen or persist or if there are any questions or concerns that arise at home. Administered Medications: 22:46 Drug: Dexamethasone PO 10 mg Route: PO; vc1 22:47 Follow up: Response: Medication administered at discharge. vc1 22:47 Drug: Amoxicillin-Clavulanate PO 875 mg Route: PO; vc1 22:47 Follow up: Response: Medication administered at discharge. vc1 Disposition: 07/14 03:43 Co-signature as Attending Physician, Shamar Martin MD I agree with the assessment sp4 and plan of care. I reviewed the patient's care provided by the Advanced Practice Provider and agree with the diagnosis and treatment plan. Disposition Summary: 07/13/22 22:38 Discharge Ordered Location: Home kb Condition: Stable kb Diagnosis - Acute tonsillitis, unspecified kb Followup: kb - With: Emergency Department - When: As needed - Reason: Worsening of condition Followup: kb - With: Private Physician - When: 2 - 3 days - Reason: Recheck today's complaints, Continuance of care, Re-evaluation by your physician Discharge Instructions: - Discharge Summary Sheet kb - Tonsillitis, [id number] kb Forms: - Medication Reconciliation Form kb - Thank You Letter kb - Antibiotic Education kb - Prescription Opioid Use kb - Work release form vc1 Prescriptions: - Augmentin 875-125 mg Oral Tablet - take 1 tablet by ORAL route every 12 hours for 10 days; 20 tablet; Refills: 0, kb Product Selection Permitted Signatures: Jordana Phillip FNP-C FNP-Ckb Calcote, Vanessa, RN RN vc1 Shamar Martin MD MD sp4
[2022-07-13] MEDS ORDERED: AMOX/K CLAV 875 MG TAB ONE (22:51)
[2022-07-13] MEDS ORDERED: dexAMETHasone 4 MG TAB ONE (22:51)
[2022-07-13 23:51] VITALS: BP 153/101; TEMP 99.3; O2SAT 99
== END 2022-07-13 22:50 | disposition home or self-care (01) ==
LOC: ER 22:28
DX: J03.90 Acute tonsillitis, unspecified (principal)
CPT/HCPCS: 99283; J8540